=== PATIENT | female | born 1990 | race African-American/Black ===

== ENCOUNTER 2017-02-17 00:19 | Emergency (ER) | payer BC ==
[2017-02-17 00:33] VITALS: BP 121/78
[2017-02-17] MEDS ORDERED: Doxycycline 100 MG Cap PO ONE (00:51)
--- NOTE | 2017-02-17 00:55 | EDM.PDOC ---
ED HPI GENERAL MEDICAL PROBLEM - General Chief Complaint: General Stated Complaint: LUMP ON LEFT BREAST Time Seen by Provider: 02/17/17 00:51 Source of Information: Reports: Patient, Family (Past) History Limitations: Reports: No limitations - History of Present Illness INITIAL COMMENTS - FREE TEXT/NARRATIVE: 26-year-old female presents to the ED with a left breast mass. She states the mass is been present for several months and seems does get larger and more painful with her periods. No she's had a intrauterine device in place for about 2 years. She felt the mass was becoming more inflamed and reddened today but was more tender 2 days ago. She's been previously assessed with this mass with ultrasound assessment suggesting it was primarily cystic. She was treated with a course of antibiotics which she's feels did not necessary help much at that time. No discharge from the skin is been appreciated. She has no systemic signs of illness such as fever chills nausea or vomiting. 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 (see below) Left Breast Pain Score (Numeric/FACES): 2 - Related Data Allergies Allergy/AdvReac Type Severity Reaction Status Date / Time No Known Allergies Allergy Verified 02/17/17 00:33 Home Meds: Home Meds Doxycycline [Vibramycin] 100 mg PO Q12HR #28 cap 02/17/17 [Rx] Levonorgestrel [Celsa] 1 device VAG ASDIRECTED 02/17/17 [History] Multivitamin [Multivitamins] 1 tab PO DAILY 02/17/17 [History] Past Medical History - Past Health History Medical/Surgical History: Denies Medical/Surgical History LMP (Approximate): other (Has an IUD in place for prevention) Social & Family History - Tobacco Use Smoking Status *Q: Current Every Day Smoker Years of Tobacco use: 5 Packs/Tins Daily: 0.1 - Caffeine Use Caffeine Use: Reports: Coffee, Soda - Recreational Drug Use Recreational Drug Use: No - Living Situation & Occupation Living situation: Reports: with significant other Occupation: employed ED ROS GENERAL - Review of Systems Review Of Systems: See Below Constitutional: Reports: no symptoms HEENT: Reports: No symptoms Respiratory: Reports: No Symptoms Cardiovascular: Reports: No symptoms Endocrine: Reports: no symptoms GI/Abdominal: Reports: No symptoms : Reports: no symptoms Musculoskeletal: Reports: no symptoms Skin: Reports: other ( no ascites painful lesion left medial breast.) Neurological: Reports: No Symptoms ( See history present illness) Psychiatric: Reports: No symptoms Hematologic/Lymphatic: Reports: no symptoms Immunologic: Reports: no symptoms ED EXAM, GENERAL - Physical Exam Exam: See Below Exam Limited By: No limitations General Appearance: alert, WD/WN, no apparent distress Respiratory/Chest: no respiratory distress, lungs clear, normal breath sounds, no accessory muscle use, other (Examination was confined primarily to the left breast. She has an area of induration with a palpable mass measuring 5 x 6 cm in size which is starting at the medial aspect of the nipple entry traveling medially. It is mobile mildly tender to palpation it appears to be fixed to the skin. There is no dimpling. However there should seems to be a change in color of the medial area will overlying the area. No discharge from the nipple has been noted. It was inverted on the left breast. Ultrasound done at the bedside revealed a complex cystic mass. Seemed to be several small cysts mixed in with the mass.) Cardiovascular: normal peripheral pulses, regular rate, rhythm, no edema, no gallop Skin Exam: Warm, Dry, Intact, Normal color, No rash, Other (Mass left medial breast at the 9:00 position. Slight erythema of the skin slight increased warmth to the area appreciated. No skin pointing years evidence of abscess noted.) Course - Vital Signs Last Recorded V/S: Last Vital Signs Temp 36.6 C 02/17/17 00:29 Pulse 82 02/17/17 00:29 Resp 16 02/17/17 00:29 BP 121/78 02/17/17 00:29 Pulse Ox 100 02/17/17 00:29 - Orders/Labs/Meds Meds: Medications Discontinued Medications Generic Name Dose Route Start Last Admin Trade Name Freq PRN Reason Stop Dose Admin Doxycycline Hyclate 200 mg 02/17/17 00:51 02/17/17 01:05 Vibramycin PO 02/17/17 00:52 200 mg ONETIME ONE Administration - Radiology Interpretation Free Text/Narrative:: 26-year-old female presents the ED with a left breast mass this apparently has been present for several months. She's been followed by Veronika Osman and apparently identified at the cystic mass in this area. She was treated with a course of antibiotics a few months ago because of suspect infection the patient felt it really didn't seem to help much. Mass gets larger and more painful with periods. Currently on her period started 2 days ago. She has an IUD in place. Examination shows a definitive breast mass under the nipple starting at the 9: 00 position and traveling both superiorly and medially. The mass is irregular in shape and is mobile within the breast. It is partially 6 x 5 cm in size and mildly tender to palpation. Bedside ultrasound suggested a complex cystic mass in this area. No definitive abscess was identified. Plan tear dissecting 200 mg orally now and then 200 mg twice daily for the next 14 days. Advise followup with Dr. Kathy Allred --surgeon at [facility] and patient informed me that she has an appointment for February 25 with her. Patient strongly encouraged to keep that appointment. Departure - Departure Time of Disposition: 00:51 Disposition: Home, Self-Care 01 Condition: fair Clinical Impression: Breast mass, left Prescriptions: Doxycycline [Vibramycin] 100 mg PO Q12HR #28 cap Instructions: Breast Cyst Referrals: Veronika Norman, DIPPER OPERATOR [Primary Care Provider] - Forms: ED Department Discharge Additional Instructions: Evaluation in the emergency department tonight in regards to in the left breast. As you have appreciate the lump has been present for a lengthy period of time and then seems to worsen at the time of menses. Examination reveals a 5 cm mass in the left breast at the 9:00 position from the nipple medially. the mass is mobile and indurated slightly firm to palpation. Slight warmth is appreciated on examination of the skin. Ultrasound reveals some cystic components to the mass suggesting a collection of cysts. Mass still needs to be further investigated and I would strongly advise you to keep your appointment to see Dr. Wayne Allred the surgeon at [facility] as planned in a week's time. In the meantime he'll be started on antibiotic doxycycline 200 mg today and then one tablet twice daily for the next 14 days to clear up suspect infection it within a breast cyst. Drainage of the cyst and biopsy needs to be carried out.
== END 2017-02-17 01:00 | disposition home or self-care (01) ==
LOC: JD.ED 00:19
DX: N63 Unspecified lump in breast (principal); F17.210 Nicotine dependence, cigarettes, uncomplicated; Z79.899 Other long term (current) drug therapy
CPT/HCPCS: 99283; A9270